=== PATIENT | male | born 1950 | race Caucasian/White ===

== ENCOUNTER 2016-12-01 15:05 | Emergency (ER) | payer MEDICARE ==
[2016-12-01] MEDS ORDERED: IOPAMIDOL 300 (61%) 150 ML VIAL IV ONE (15:06)
[2016-12-01 15:50] LABS: PH,URINE 6.5 (5.0-8.0); URINE BILIRUBIN NEGATIVE (NEGATIVE); URINE BLOOD TRACE (NEGATIVE); URINE GLUCOSE (UA) NEGATIVE (NEGATIVE); URINE LEUKOCYTE ESTERASE NEGATIVE (NEGATIVE); URINE NITRITE NEGATIVE (NEGATIVE); URINE PROTEIN NEGATIVE (NEGATIVE); URINE UROBILINOGEN 1 mg/dL (0-1 mg/dl)
[2016-12-01 15:51] LABS: URINE APPEARANCE CLEAR; URINE COLOR YELLOW
[2016-12-01 16:03] LABS: ABSOLUTE NEUTROPHIL COUNT 2.8 K/mm3 (1.8-7.7); BASO % 0.2 % (0.2-1.0); EOS # 0.1 (0.0-0.5); EOS % 1.2 % (0.9-2.9); HEMATOCRIT 40.2 % (32.0-52.0); HEMOGLOBIN 13.3 gm/l (14.0-18.0); IMM NEUT% 0.3 % (0-1); LYMPH # 3.1 (1.0-4.8); LYMPH % 47.4 % (15-45); MEAN CELL VOLUME 97.6 fl (80.0-94.0); MEAN CORPUSCULAR HEMOGLOBIN 32.3 pg (27.0-31.0); MEAN CORPUSCULAR HGB CONC 33.1 g/dl (33.0-37.0); MEAN PLATELET VOLUME 9.5 fl (7.4-10.4); MONO # 0.6 (0.0-0.8); MONO % 8.5 % (4-12); NEUT % 42.4 % (43-75); PLATELET COUNT 228 K/mm3 (130-400); RED CELL DISTRIBUTION WIDTH 12.5 % (11.5-14.5)
[2016-12-01 16:10] LABS: URINE RBC 0-2 /hpf; URINE WBC NEG /hpf
[2016-12-01 16:12] LABS: URINE BACTERIA FEW
[2016-12-01 16:13] LABS: URINE EPITHELIAL CELLS 0-2 /hpf
[2016-12-01 16:15] LABS: ALB/GLOB RATIO 1.3 (>1.0); ALBUMIN 4.1 gm/dL (3.5-5.7); CALCIUM 9.2 mg/dL (8.6-10.3)
--- NOTE | 2016-12-01 17:31 | CT ---
Exam: CT abdomen and pelvis with contrast COMPARISON: None INDICATION: Low back pain. TECHNIQUE: CT examination of the abdomen and pelvis was obtained following the administration of 100 mL Isovue-300 intravenous contrast. FINDINGS: Horseshoe kidney. There is a 1.7 cm low-density lesion within the inferior poles which does not meet imaging criteria for a simple cyst although benign lesion is favored. This can be nonemergently evaluated with ultrasound. There is no hydronephrosis. Minor, nonspecific and symmetric perinephric stranding is seen. The liver, spleen, pancreas, adrenal glands and gallbladder are unremarkable. Moderate amount of stool is present within the rectum. There are a few scattered colonic diverticula without evidence of diverticulitis. The appendix is normal. There is no bowel obstruction, free air or free peritoneal fluid. Urinary bladder is unremarkable. 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 Atheromatous but nonaneurysmal abdominal aorta. Lung bases are clear. No worrisome lytic or blastic osseous lesion is identified. There is multilevel degenerative disc disease most prominent at L3-4 and L4-5. Prominent facet arthropathy is seen at L5-S1, greater on the right. 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 IMPRESSION: 1. No acute findings identified to explain low back pain. 2. Degenerative changes within the lumbar spine as above. 3. 1.7 cm low-density lesion within the horseshoe kidney which is incompletely characterized although cyst is favored. Consider nonemergent ultrasound for further evaluation. 4. Mild colonic diverticulosis without evidence of diverticulitis. Report called Dr. Miller 1727 hours 12/01/2016.
== END 2016-12-01 17:40 | disposition home or self-care (01) ==
LOC: ED 15:05
DX: M54.5 Low back pain (principal)
CPT/HCPCS: 85025; 80053; 81001; 99283; 74177; 99284; Q9967